=== PATIENT | female | born 1945 | race Hispanic/Latino ===

== ENCOUNTER → 2017-11-24 | Outpatient (CLI) | payer OTHER ==
[~2017-11-24] MED LIST: AMLO10TA4 PO; ASPI-1181 PO; CHOL100018 PO; CILO50TA PO; CLON0.1T PO; CLOP75TA32 PO; FENT-77 TD; FERR240T6 PO; HYDROCODONE PO; INSU100V12 SQ; LINA1TAB PO; METO50TA18 PO; OMEP40CA37 PO; ROSU5TAB PO; SERT50TA12 PO; SOLI5 PO
== END | disposition home or self-care (01) ==
LOC: SHCH 14:44
PROVIDERS: ATTEND Internal Medicine Cardiovascular Disease
DX: I65.23 Occlusion and stenosis of bilateral carotid arteries (principal); I70.8 Atherosclerosis of other arteries; R09.89 Other specified symptoms and signs involving the circulatory and respiratory systems
CPT/HCPCS: 93880

== ENCOUNTER → 2018-07-27 | Outpatient (CLI) | payer OTHER ==
[2018-07-27] MEDS: REGADENOSON 0.4 MG/5 ML PF SYG IVP SCH ×2 (10:35→13:16)
== END | disposition home or self-care (01) ==
LOC: SHCH 08:13
PROVIDERS: ATTEND Internal Medicine Cardiovascular Disease
DX: I25.10 Atherosclerotic heart disease of native coronary artery without angina pectoris (principal); I10 Essential (primary) hypertension
CPT/HCPCS: 78452; 93017; 96374; A9500 ×2; J2785

== ENCOUNTER 2018-07-28 06:03 | Emergency (ER) | payer OTHER ==
[2018-07-28 06:36] LABS: BASOPHILS % (AUTO) 0.7 % (0.0-5.0); LYMPHOCYTES % (AUTO) 26.5 % (21.0-51.0); MEAN CORPUSCULAR HEMOGLOBIN 28.9 pg (27.0-33.0); MEAN CORPUSCULAR VOLUME 87.7 fL (79-99); MONOCYTES % (AUTO) 13.9 % (3.0-13.0); NEUTROPHILS % (AUTO) 55.9 % (40.0-77.0); PLATELET COUNT (AUTO) 213 K/uL (130-400); RED BLOOD CELL COUNT(AUTO) 3.76 MIL/uL (4.00-5.50); RED CELL DISTRIBUTION WIDTH 14.7 % (11.0-15.5); WHITE BLOOD COUNT (AUTO) 5.2 K/uL (4.8-10.8)
[2018-07-28] MEDS ORDERED: HYDROCODONE/ACETAMINOPHEN 7.5/325 MG 15 ML UDCUP ONE (06:38)
[2018-07-28 06:43] LABS: CREATININE 0.8 mg/dL (0.5-1.5); POTASSIUM 3.3 mmol/L (3.5-5.1)
[2018-07-28 06:47] LABS: ALBUMIN 3.8 g/dL (3.5-5.0); BILIRUBIN,TOTAL 0.4 mg/dL (0.2-1.0); CRP QUANTITATIVE 23.1 mg/L (0.00-9.0); TOTAL PROTEIN, SERUM 7.5 g/dL (6.0-8.3)
[2018-07-28] MEDS ORDERED: CEFTRIAXONE SODIUM 1 GM ONE (08:03)
[2018-07-28] MEDS ORDERED: SODIUM CHLORIDE 0.9% 50 ML IV ONE (08:03)
== END 2018-07-28 08:59 | disposition home or self-care (01) ==
LOC: EDH 06:03
DX: M25.432 Effusion, left wrist (principal); M25.532 Pain in left wrist; M25.522 Pain in left elbow; M79.632 Pain in left forearm; I10 Essential (primary) hypertension; E11.9 Type 2 diabetes mellitus without complications; M81.0 Age-related osteoporosis without current pathological fracture; Z98.890 Other specified postprocedural states
CPT/HCPCS: 29125; 36415; 73070; 73090; 73100; 73110; 80053; 85025; 86140; 96374; 99285; J0696

== ENCOUNTER → 2018-08-11 | Outpatient (CLI) | payer OTHER | END | disposition home or self-care (01) | LOC: SHCH 07-22 13:19 | PROVIDERS: ATTEND Internal Medicine Cardiovascular Disease | DX: I25.10 Atherosclerotic heart disease of native coronary artery without angina pectoris (principal); I10 Essential (primary) hypertension | CPT/HCPCS: 93306 ==

== ENCOUNTER 2018-11-24 07:47 | Day surgery (SDC) | payer OTHER ==
[2018-11-20 09:39] VITALS: BP 153/83
[2018-11-20 10:09] LABS: BASOPHILS % (AUTO) 0.3 % (0.0-5.0); EOSINOPHILS % (AUTO) 1.9 % (0.0-8.0); HEMATOCRIT 35.7 % (36-48); LYMPHOCYTES % (AUTO) 28.7 % (21.0-51.0); MEAN CORPUSCULAR HEMOGLOBIN 28.8 pg (27.0-33.0); MEAN CORPUSCULAR HGB CONC 32.5 g/dL (32.0-36.0); MEAN CORPUSCULAR VOLUME 88.5 fL (79-99); MONOCYTES % (AUTO) 10.1 % (3.0-13.0); PLATELET COUNT (AUTO) 213 K/uL (130-400); RED BLOOD CELL COUNT(AUTO) 4.04 MIL/uL (4.00-5.50); RED CELL DISTRIBUTION WIDTH 14.8 % (11.0-15.5); WHITE BLOOD COUNT (AUTO) 4.4 K/uL (4.8-10.8)
[2018-11-20 10:17] LABS: CREATININE 0.9 mg/dL (0.5-1.5); POTASSIUM 4.2 mmol/L (3.5-5.1)
[2018-11-20 10:20] LABS: INR 0.97 (0.85-1.15); PARTIAL THROMBOPLASTIN TIME 28.5 SEC (26.3-35.5); PROTHROMBIN TIME 10.2 SEC (9.6-11.6)
[2018-11-20 10:26] LABS: APPEARANCE,URINE SL CLOUDY (CLEAR); BILIRUBIN,URINE SMALL (NEGATIVE); COLOR,URINE YELLOW (YELLOW); GLUCOSE, URINE (UA) NEGATIVE (NEGATIVE); KETONES,URINE 15 mg/dL (NEGATIVE); LEUKOCYTE ESTERASE ,URINE SMALL (NEGATIVE); NITRATE,URINE NEGATIVE (NEGATIVE); OCCULT BLOOD,URINE MODERATE (NEGATIVE); PH,URINE 5.5 (5.0-8.0); PROTEIN,URINE 30 (NEGATIVE)
[2018-11-20 10:57] LABS: WBC,URINE 0-1 /HPF (0-1)
[2018-11-20 11:00] LABS: BACTERIA,URINE Few /HPF (None Seen)
[2018-11-24] VITALS (11 sets, daily range): BP systolic 116–199; BP diastolic 72–124
[~2018-11-24] VITALS: Ht 149.9 cm; Wt 67.4 kg
[~2018-11-24 07:47] MED LIST changes: +BUSP10TA3 PO; -CHOL100018 PO; +CHOL500050 PO; +CILO100T PO; -CILO50TA PO; -CLON0.1T PO; +DEXL60CA3 PO; -FERR240T6 PO; +FOLI1TAB15 PO; +HYDR-4064 PO; -HYDROCODONE PO; +INSU100I21 SQ; -INSU100V12 SQ; +IRON1CAP3 PO; -LINA1TAB PO; +LINA5TAB PO; +METF-444 PO; +METO-391 PO; -METO50TA18 PO; -OMEP40CA37 PO; +SODIUM CHLORIDE 0.9% 500ML 500 ML IV SCH
[2018-11-24] MEDS ORDERED: SODIUM BICARB 50MEQ 50ML VIAL ONE (10:16)
[2018-11-24] MEDS ORDERED: NITROGLYCERIN 5 MG/ML 10 ML VIAL IV ONE (10:16)
[2018-11-24] MEDS ORDERED: IOHEXOL 350 MG/ML 100ML INFUS..BTL IV ONE (10:17)
[2018-11-24] MEDS ORDERED: LIDOCAINE HCL 2% 20ML ONE (10:17)
[2018-11-24] MEDS ORDERED: IOHEXOL-350 50ML VIAL IV ONE (10:17)
[2018-11-24] MEDS ORDERED: MEPERIDINE-PF 25 MG/ML SYG ONE ×2 (10:44→11:06)
[2018-11-24] MEDS ORDERED: MIDAZOLAM HCL 1 MG/ML 2ML VIAL ONE ×2 (10:45→11:06)
[2018-11-24] MEDS ORDERED: HEPARIN SODIUM 1000UNIT/ML 10ML VIAL ONE (11:16)
[2018-11-24] MEDS ORDERED: IOHEXOL-350 75 ML VIAL IV ONE (11:16)
[2018-11-24] MEDS ORDERED: ADENOSINE 90MG/30ML VIAL IV ONE (11:24)
[2018-11-24] MEDS ORDERED: ONDANSETRON HCL 4 MG/2 ML VIAL IVP PRN (11:45)
[2018-11-24] MEDS ORDERED: SODIUM CHLORIDE 0.9% 1000ML 1,000 ML IV SCH (11:45)
[2018-11-24] MEDS ORDERED: ACETAMINOPHEN-CODEINE 300/30MG TAB PO PRN ×2 (11:45)
[2018-11-24] MEDS ORDERED: ROSU10TA27 PO (15:23)
--- NOTE | 2018-11-24 16:17 | NUR ---
GAVE REPORT TO IDA YATES RN, NO CONCERNS VOICED
--- NOTE | 2018-11-24 16:30 | NUR ---
PATIENT RESUME CARE FOR PATIENT, REPORT WAS GIVEN TO ME BY GATO GUZMAN RN. PT AWAKE AND ALERT IN BED, PATIENT CONTINUES TO BE BEDREST, RIGHT GROIN DRESSING DRY AND INTACT, PEDAL PULSE PALPABLE. DAUGHTER AT BEDSIDE.
--- NOTE | 2018-11-24 17:11 | NUR ---
DC DC INSTRUCTIONS GIVEN TO PT/PTS DAUGHTER WITH RX, INSTRUCTED TO F/U WITH DR. BOWMAN, PT LYING IN BED,NO DISTRESS NOTED, DENIED ANY PAIN OR DISCOMFORTS. PATIENT REMAINS BEDREST, WILL BE DISCHARGE HOME ONCE BEDREST IS UP.
--- NOTE | 2018-11-24 18:11 | NUR ---
FLUIDS IVF COMPLETED AT THIS TIME, PT ASSISTED OUT OF BED,BEDREST UP , RIGHT GROIN SITE WITH NO BLEEDING ,HEMATOMA, OR BRUSING, PT AWAKE AND ALERT,NO DISTRESS NOTED. PT GETTING DRESS TO GO HOME, DAUGHTER AT BEDSIDE. DC INSTRUCTIOSN REINFORCED AGAIN. PT /DAUGHTER VERBALIZED UNDERSTANDING, NO PIV NOTED.
--- NOTE | 2018-11-24 18:20 | NUR ---
DC PT DC HOME VIA WC,NO DISTRESS NOTED. ACCOMPANIED BY DAUGHTER
== END 2018-11-24 18:20 | disposition home or self-care (01) ==
LOC: DAH 07:47
PROVIDERS: ATTEND Internal Medicine Cardiovascular Disease
DX: I25.118 Atherosclerotic heart disease of native coronary artery with other forms of angina pectoris (principal); Z79.899 Other long term (current) drug therapy; Z79.01 Long term (current) use of anticoagulants; D64.89 Other specified anemias; I10 Essential (primary) hypertension; E78.5 Hyperlipidemia, unspecified; E11.9 Type 2 diabetes mellitus without complications; E66.9 Obesity, unspecified; G89.4 Chronic pain syndrome; Z98.890 Other specified postprocedural states; Z83.3 Family history of diabetes mellitus; Z82.49 Family history of ischemic heart disease and other diseases of the circulatory system; Z80.9 Family history of malignant neoplasm, unspecified
CPT/HCPCS: 36415; 71045; 80048; 81001; 82948 ×3; 85025; 85610; 85730; 93005; 93458; 93571; A4606; C1760; C1769; C1887; C1894; J0153; J1644 ×2; J2175 ×2; J2250 ×2; J3490 ×3; Q9965; Q9967 ×2; 99156; 99157

== ENCOUNTER 2019-02-27 16:08 | Emergency (ER) | payer OTHER ==
[~2019-02-27 16:08] MED LIST changes: +ROSU10TA27 PO; -ROSU5TAB PO; -SODIUM CHLORIDE 0.9% 500ML 500 ML IV SCH
[2019-02-27] MEDS ORDERED: ACETAMINOPHEN EXTRA STRENGTH 500 MG TABLET ONE (16:34)
== END 2019-02-27 17:55 | disposition home or self-care (01) ==
LOC: EDH 16:08
DX: S76.012A Strain of muscle, fascia and tendon of left hip, initial encounter (principal); S80.02XA Contusion of left knee, initial encounter; S80.01XA Contusion of right knee, initial encounter; S09.8XXA Other specified injuries of head, initial encounter; M48.02 Spinal stenosis, cervical region; E11.9 Type 2 diabetes mellitus without complications; I10 Essential (primary) hypertension; M81.0 Age-related osteoporosis without current pathological fracture; W01.0XXA Fall on same level from slipping, tripping and stumbling without subsequent striking against object, initial encounter; Y93.01 Activity, walking, marching and hiking; Y92.090 Kitchen in other non-institutional residence as the place of occurrence of the external cause; Y99.8 Other external cause status
CPT/HCPCS: 70450; 72125; 73521; 73560

== ENCOUNTER 2019-05-11 12:57 | Emergency (ER) | payer OTHER ==
[~2019-05-11 12:57] MED LIST changes: -ROSU10TA27 PO; +ROSU10TA28 PO
[2019-05-11] MEDS ORDERED: ACETAMINOPHEN 325 MG TAB ONE (13:11)
== END 2019-05-11 16:27 | disposition home or self-care (01) ==
LOC: EDH 12:57
DX: S13.4XXA Sprain of ligaments of cervical spine, initial encounter (principal); S53.492A Other sprain of left elbow, initial encounter; S63.592A Other specified sprain of left wrist, initial encounter; S09.8XXA Other specified injuries of head, initial encounter; E11.9 Type 2 diabetes mellitus without complications; I10 Essential (primary) hypertension; M81.0 Age-related osteoporosis without current pathological fracture; W18.39XA Other fall on same level, initial encounter; Y93.01 Activity, walking, marching and hiking; Y92.89 Other specified places as the place of occurrence of the external cause; Y99.8 Other external cause status
CPT/HCPCS: 70450; 70486; 71045; 72125; 73080; 73110; 93005

== ENCOUNTER 2019-08-07 13:10 | Emergency (ER) | payer OTHER ==
[2019-08-07 13:54] LABS: BASOPHILS % (AUTO) 0.7 % (0.0-5.0); EOSINOPHILS % (AUTO) 2.7 % (0.0-8.0); HEMATOCRIT 38.1 % (36-48); LYMPHOCYTES % (AUTO) 27.8 % (21.0-51.0); MEAN CORPUSCULAR HEMOGLOBIN 28.9 pg (27.0-33.0); MEAN CORPUSCULAR HGB CONC 33.1 g/dL (32.0-36.0); MEAN CORPUSCULAR VOLUME 87.2 fL (79-99); MONOCYTES % (AUTO) 11.9 % (3.0-13.0); NEUTROPHILS % (AUTO) 56.9 % (40.0-77.0); PLATELET COUNT (AUTO) 136 K/uL (130-400); RED BLOOD CELL COUNT(AUTO) 4.37 MIL/uL (4.00-5.50); RED CELL DISTRIBUTION WIDTH 16.1 % (11.0-15.5); WHITE BLOOD COUNT (AUTO) 4.1 K/uL (4.8-10.8)
[2019-08-07 14:01] LABS: CREATININE 0.9 mg/dL (0.5-1.5); POTASSIUM 3.2 mmol/L (3.5-5.1)
[2019-08-07] MEDS ORDERED: ASPIRIN 325 MG TABLET ONE (14:03)
[2019-08-07 14:06] LABS: ALBUMIN 4.2 g/dL (3.5-5.0); BILIRUBIN,TOTAL 0.5 mg/dL (0.2-1.0); TOTAL PROTEIN, SERUM 7.9 g/dL (6.0-8.3)
[2019-08-07 14:15] LABS: CREATINE KINASE, TOTAL 48 U/L (21-232); MYOGLOBIN 48 ng/mL (10-92); TROPONIN I < 0.04 ng/mL (0.00-0.06)
[2019-08-07 14:17] LABS: AMYLASE 51 U/L (25-115); LIPASE 113 U/L (114-286)
[2019-08-07 14:38] LABS: BILIRUBIN,URINE Small (NEGATIVE); COLOR,URINE Dark Yellow (YELLOW); GLUCOSE, URINE (UA) Negative (NEGATIVE); KETONES,URINE 15 mg/dL (NEGATIVE); LEUKOCYTE ESTERASE ,URINE Small (NEGATIVE); NITRATE,URINE Negative (NEGATIVE); OCCULT BLOOD,URINE Negative (NEGATIVE); PH,URINE 5.5 (5.0-8.0); PROTEIN,URINE 300 mg/dL (NEGATIVE)
[2019-08-07 15:16] LABS: APPEARANCE,URINE HAZY (CLEAR); BACTERIA,URINE Few /HPF (None Seen); RBC,URINE None Seen /HPF (0-1)
[2019-08-07 15:55] LABS: INR 1.03 (0.85-1.15); PARTIAL THROMBOPLASTIN TIME 24.4 SEC (26.3-35.5); PROTHROMBIN TIME 10.6 SEC (9.6-11.6)
== END 2019-08-07 16:00 | disposition home or self-care (01) ==
LOC: EDH 13:10
DX: R07.89 Other chest pain (principal); E11.9 Type 2 diabetes mellitus without complications; I10 Essential (primary) hypertension; M81.0 Age-related osteoporosis without current pathological fracture; Z90.710 Acquired absence of both cervix and uterus; Z96.612 Presence of left artificial shoulder joint; Z96.611 Presence of right artificial shoulder joint
CPT/HCPCS: 36415; 71045; 80053; 81001; 82150; 82550; 83690; 83874; 84484; 85025; 85610; 85730; 93005

== ENCOUNTER → 2019-09-07 | Outpatient (CLI) | payer OTHER | END | disposition home or self-care (01) | LOC: SHCH 10:23 | PROVIDERS: ATTEND Internal Medicine Cardiovascular Disease | DX: I65.23 Occlusion and stenosis of bilateral carotid arteries (principal) | CPT/HCPCS: 93880 ==

== ENCOUNTER 2020-03-18 13:33 | Emergency (ER) | payer OTHER ==
[2020-03-18] MEDS ORDERED: ACETAMINOPHEN 325 MG TAB ONE (14:24)
[2020-03-18] MEDS ORDERED: TETANUS/DIPHTHERIA TOXOID [ADULT] 0.5 ML VIAL IM ONE (14:24)
[2020-03-18] MEDS ORDERED: L.E.T. GEL 4%/0.5%/0.18% 3ML 3 ML/SYR SYG TP ONE (15:32)
== END 2020-03-18 17:01 | disposition home or self-care (01) ==
LOC: EDH 13:33
DX: S01.01XA Laceration without foreign body of scalp, initial encounter (principal); S53.491A Other sprain of right elbow, initial encounter; S83.8X1A Sprain of other specified parts of right knee, initial encounter; M54.2 Cervicalgia; E11.9 Type 2 diabetes mellitus without complications; I10 Essential (primary) hypertension; Z79.899 Other long term (current) drug therapy; W18.39XA Other fall on same level, initial encounter; Y93.01 Activity, walking, marching and hiking; Y92.89 Other specified places as the place of occurrence of the external cause; Y99.8 Other external cause status

== ENCOUNTER → 2020-06-29 | Outpatient (CLI) | payer OTHER ==
[~2020-06-29] MED LIST changes: -ASPI-1181 PO; +ASPI-1443 PO
== END | disposition home or self-care (01) ==
LOC: SHCH 10:00
PROVIDERS: ATTEND Internal Medicine Cardiovascular Disease
DX: I08.0 Rheumatic disorders of both mitral and aortic valves (principal)
CPT/HCPCS: 93306; 93356

== ENCOUNTER → 2021-03-14 | Outpatient (CLI) | payer OTHER ==
[~2021-03-14] MED LIST changes: +SERT-439 PO; -SERT50TA12 PO
== END | disposition home or self-care (01) ==
LOC: SHCH 09:22
PROVIDERS: ATTEND Internal Medicine Cardiovascular Disease
DX: I73.9 Peripheral vascular disease, unspecified (principal); Z95.5 Presence of coronary angioplasty implant and graft
CPT/HCPCS: 93925

== ENCOUNTER → 2021-05-21 | Outpatient (CLI) | payer OTHER ==
[~2021-05-21] MED LIST changes: +FURO40TA7 PO; +MAGN400T7 PO; +REGADENOSON 0.4 MG/5 ML PF SYG IVP SCH; +SPIR25TA PO
== END | disposition home or self-care (01) ==
LOC: SHCH 08:11
PROVIDERS: ATTEND Internal Medicine Cardiovascular Disease
DX: I10 Essential (primary) hypertension (principal); R06.09 Other forms of dyspnea; R07.89 Other chest pain; R11.0 Nausea; R10.9 Unspecified abdominal pain
CPT/HCPCS: 78452; 93017; 96374; A9500 ×2; J2785

== ENCOUNTER → 2021-12-11 | Outpatient (CLI) | payer OTHER ==
[~2021-12-11] MED LIST changes: -REGADENOSON 0.4 MG/5 ML PF SYG IVP SCH
== END | disposition home or self-care (01) ==
LOC: RAH 09:05
PROVIDERS: ATTEND Family Medicine
DX: K55.1 Chronic vascular disorders of intestine (principal); I70.0 Atherosclerosis of aorta; Z90.49 Acquired absence of other specified parts of digestive tract
CPT/HCPCS: 74150

== ENCOUNTER 2022-01-23 06:25 | Observation (INO) | payer OTHER ==
[2022-01-21 10:37] LABS: BASOPHILS % (AUTO) 0.1 % (0.0-5.0); HEMATOCRIT 37.1 % (36-48); LYMPHOCYTES % (AUTO) 17.8 % (21.0-51.0); MEAN CORPUSCULAR HEMOGLOBIN 27.8 pg (27.0-33.0); MEAN CORPUSCULAR HGB CONC 31.3 g/dL (32.0-36.0); MONOCYTES % (AUTO) 7.5 % (3.0-13.0); NEUTROPHILS % (AUTO) 72.7 % (40.0-77.0); PLATELET COUNT (AUTO) 201 K/uL (130-400); RED BLOOD CELL COUNT(AUTO) 4.17 MIL/uL (4.00-5.50); RED CELL DISTRIBUTION WIDTH 13.8 % (11.0-15.5); WHITE BLOOD COUNT (AUTO) 6.7 K/uL (4.8-10.8)
[2022-01-21 10:51] LABS: INR 1.06 (0.85-1.15)
[2022-01-21 10:54] LABS: CREATININE 1.4 mg/dL (0.5-1.5); POTASSIUM 4.1 mmol/L (3.5-5.1)
[2022-01-21 11:50] LABS: APPEARANCE,URINE CLOUDY (CLEAR); BILIRUBIN,URINE SMALL (NEGATIVE); COLOR,URINE YELLOW (YELLOW); GLUCOSE, URINE (UA) NEGATIVE (NEGATIVE); KETONES,URINE 5 mg/dL (NEGATIVE); LEUKOCYTE ESTERASE ,URINE SMALL (NEGATIVE); NITRATE,URINE NEGATIVE (NEGATIVE); OCCULT BLOOD,URINE LARGE (NEGATIVE); PROTEIN,URINE 30 mg/dL (NEGATIVE); UROBILINOGEN,URINE 0.2 mg/dL (0.2-1.0)
[2022-01-21 12:05] LABS: BACTERIA,URINE Few /HPF (None Seen); RBC,URINE 0-1 /HPF (0-1); SQUAMOUS EPITHELIAL CELL,UR Few /HPF (0-2)
[2022-01-22 09:11] VITALS: BP 130/90
[~2022-01-23] VITALS: Ht 162.6 cm; Wt 74.8 kg
[2022-01-23] VITALS (25 sets, daily range): BP systolic 131–185; BP diastolic 52–94
[~2022-01-23 06:25] MED LIST changes: -CHOL500050 PO; -CILO100T PO; +CILO50TA PO; +CLIN-116 PO; +DOCU100T PO; -FENT-77 TD; +HYDR-4060 PO; -HYDR-4064 PO; -INSU100I21 SQ; +INSU100V12 SQ; -IRON1CAP3 PO; +LOSA25TA41 PO; +MAGN400T51 PO; -MAGN400T7 PO; -METF-444 PO; +METF500S7 PO; -SERT-439 PO; +SERT-440 PO; -SPIR25TA PO
[2022-01-23] MEDS ORDERED: 0.9%NACL 1000ML 1,000 ML IV ONE (07:33)
[2022-01-23] MEDS: CEFAZOLIN SODIUM 1 GM VIAL IVP SCH ×3 (07:45→18:56)
[2022-01-23] MEDS: LEVOFLOXACIN 500 MG/D5W 100 ML 100 ML IV SCH ×2 (09:00→20:06)
[2022-01-23] MEDS ORDERED: PROPOFOL 10 MG/ML 20ML VIAL IV ONE (10:15)
[2022-01-23] MEDS ORDERED: LIDOCAINE PF 100MG/5ML (2%) SYRINGE 5ML ONE (10:15)
[2022-01-23] MEDS ORDERED: ROCURONIUM 10MG/1ML SYR 10 MG/ML ML ONE (10:15)
[2022-01-23] MEDS ORDERED: ROPIVACAINE 0.5% 5MG/ML 30ML IJ ONE (10:18)
[2022-01-23] MEDS ORDERED: EPHEDRINE SULFATE 50 MG/ML AMPULE ONE (11:06)
[2022-01-23] MEDS: CEFAZOLIN SODIUM 1 GM VIAL ONE ×2 (11:42→11:43)
[2022-01-23] MEDS ORDERED: PHENYLEPHRINE HCL 10 MG/ML 1ML VIAL IV ONE (12:22)
[2022-01-23] MEDS ORDERED: ONDANSETRON 4MG INJ ONE (13:02)
[2022-01-23] MEDS ORDERED: GLYCOPYRROLATE 1 MG/5 ML SYRINGE ONE (13:02)
[2022-01-23] MEDS ORDERED: NEOSTIGMINE 5MG/5ML SYR IV ONE (13:02)
[2022-01-23] MEDS ORDERED: TEMAZEPAM 15 MG CAPSULE PO PRN (13:30)
[2022-01-23] MEDS ORDERED: DiphenhydrAMINE HCL 50 MG/ML VIAL IVP PRN (13:30)
[2022-01-23] MEDS ORDERED: TRAMADOL HCL 50 MG TABLET PO PRN (13:30)
[2022-01-23] MEDS ORDERED: KETOROLAC 15MG/ML VIAL (15MG/ML) IV PRN (13:30)
[2022-01-23] MEDS ORDERED: POTASSIUM CHLORIDE 10% ELIXIR 20 MEQ/15 ML UDCUP PO PRN (13:30)
[2022-01-23] MEDS: ACETAMINOPHEN 500 MG TABLET PO SCH ×2 (13:30→20:52)
[2022-01-23] MEDS ORDERED: ONDANSETRON 4MG INJ IVP PRN (13:30)
[2022-01-23] MEDS ORDERED: POTASSIUM CHLORIDE 20MEQ/100ML 100 ML IV PRN (13:30)
[2022-01-23] MEDS ORDERED: LIDOCAINE HCL-MPF 1% 2ML VIAL IV PRN (13:30)
[2022-01-23] MEDS: 0.9%NACL 1000ML 1,000 ML IV SCH ×2 (13:30→23:30)
[2022-01-23] MEDS ORDERED: FE FUMARATE/FA/MV, MIN COMB#15 1 TAB PO PRN (13:30)
[2022-01-23] MEDS ORDERED: MEPERIDINE-PF 25 MG/ML SYG ONE (14:05)
[2022-01-23] MEDS ORDERED: LABETALOL 20MG SYG IV ONE (14:38)
[2022-01-23 16:18] LABS: APPEARANCE BODY FLUID CLOUDY (CLEAR); BODY FLUID WBC 53 /cu. mm.; COLOR,BODY FLUID ORANGE (LT YELLOW); SPECIMENTYPE,BODY FLUID SYNOVIAL; TOTAL VOLUME,BODY FLUID 9 mL
[2022-01-23 16:19] LABS: BODY FLUID RBC 7150 /cu. mm.
[2022-01-23] MEDS: INSULIN HUMULIN R 100 UNIT/ML 3ML SQ SCH ×2 (16:30→20:53)
[2022-01-23 17:03] LABS: BF LYMPHOCYTE 37 %; BF MONOCYTE 2 %
[2022-01-23] MEDS: CELECOXIB 200 MG CAP PO SCH (20:52)
[2022-01-23] MEDS: FAMOTIDINE 20MG TAB PO SCH (20:52)
[2022-01-23] MEDS: ASPIRIN 81 MG EC TAB PO SCH (20:52)
[2022-01-23] MEDS: OXYCODONE HCL 5 MG TAB PO PRN (21:02)
[2022-01-24 00:30] VITALS: BP 110/48
[2022-01-24] MEDS: CEFAZOLIN SODIUM 1 GM VIAL IVP SCH (01:21)
[2022-01-24] MEDS: OXYCODONE HCL 5 MG TAB PO PRN ×5 (01:28→21:33)
[2022-01-24 04:06] LABS: HEMATOCRIT 25.3 % (36-48); MEAN CORPUSCULAR HEMOGLOBIN 28.6 pg (27.0-33.0); MEAN CORPUSCULAR HGB CONC 32.8 g/dL (32.0-36.0); MEAN CORPUSCULAR VOLUME 87.2 fL (79-99); RED BLOOD CELL COUNT(AUTO) 2.9 MIL/uL (4.00-5.50); WHITE BLOOD COUNT (AUTO) 4.2 K/uL (4.8-10.8)
[2022-01-24 04:18] LABS: CREATININE 0.9 mg/dL (0.5-1.5); POTASSIUM 3.5 mmol/L (3.5-5.1)
[2022-01-24 04:37] VITALS: BP 117/53
[2022-01-24] MEDS: ACETAMINOPHEN 500 MG TABLET PO SCH ×3 (04:48→21:29)
[2022-01-24] MEDS: INSULIN HUMULIN R 100 UNIT/ML 3ML SQ SCH ×4 (06:58→21:00)
[2022-01-24 07:00] VITALS: BP 106/51
[2022-01-24] MEDS: CELECOXIB 200 MG CAP PO SCH ×2 (08:29→21:26)
[2022-01-24] MEDS: ASPIRIN 81 MG EC TAB PO SCH ×2 (08:29→21:26)
[2022-01-24] MEDS: POLYETHYLENE GLYCOL 3350 17 GM POWD.PACK PO SCH (08:29)
[2022-01-24] MEDS: FAMOTIDINE 20MG TAB PO SCH ×2 (08:29→21:26)
[2022-01-24] MEDS: 0.9%NACL 1000ML 1,000 ML IV SCH (08:29)
[2022-01-24] MEDS: LEVOFLOXACIN 500 MG TABLET PO SCH (08:30)
[2022-01-24] MEDS ORDERED: DOCUSATE SODIUM 100 MG CAP PO PRN (10:00)
[2022-01-24 11:05] VITALS: BP 135/54
[2022-01-24] MEDS: CALCIUM CARB 500MG PO PRN ×2 (12:34→21:27)
[2022-01-24] MEDS: CILOSTAZOL 100 MG TAB PO SCH ×2 (12:34→21:26)
[2022-01-24] MEDS: KCL 20 MEQ ERTAB PO PRN ×2 (12:35→16:02)
[2022-01-24 15:00] VITALS: BP 128/59
[2022-01-24] MEDS: BUSPIRONE HCL 5 MG TABLET PO SCH ×2 (16:03→21:27)
[2022-01-24] MEDS: LEVOFLOXACIN 500 MG/D5W 100 ML 100 ML IV SCH (19:46)
[2022-01-24 19:58] VITALS: BP 124/61
[2022-01-24] MEDS ORDERED: SOLIFENACIN SUCCINATE 5 MG PO SCH (21:00)
[2022-01-24] MEDS ORDERED: ATORVASTATIN 20 MG TABLET PO SCH (21:00)
[2022-01-24] MEDS ORDERED: INSULIN GLARGINE 100 UNITS/ML 10 ML VIAL SQ SCH (21:00)
[2022-01-25 00:17] VITALS: BP 164/74
[2022-01-25 04:00] VITALS: BP 134/73
[2022-01-25] MEDS: ACETAMINOPHEN 500 MG TABLET PO SCH ×2 (06:04→14:37)
[2022-01-25] MEDS: OXYCODONE HCL 5 MG TAB PO PRN ×4 (06:05→19:24)
[2022-01-25] MEDS: INSULIN HUMULIN R 100 UNIT/ML 3ML SQ SCH ×3 (06:05→16:28)
[2022-01-25 08:00] VITALS: BP 165/86
[2022-01-25] MEDS ORDERED: LOSARTAN 25 MG TABLET PO SCH (09:00)
[2022-01-25] MEDS ORDERED: ***HM***(Dexlansoprazole (Dexilant) 60 MG) PO SCH (09:00)
[2022-01-25] MEDS ORDERED: CLOPIDOGREL 75MG TAB PO SCH (09:00)
[2022-01-25] MEDS ORDERED: METFORMIN HCL 500 MG TAB.SR.24H PO SCH (09:00)
[2022-01-25] MEDS ORDERED: AMLODIPINE 5 MG TAB PO SCH (09:00)
[2022-01-25] MEDS ORDERED: ASPIRIN 81 MG EC TAB PO SCH (09:00)
[2022-01-25] MEDS ORDERED: FOLIC ACID 1 MG TABLET PO SCH (09:00)
[2022-01-25] MEDS ORDERED: METOPROLOL SUCCINATE 50 MG TAB.SR.24H PO SCH (09:00)
[2022-01-25] MEDS ORDERED: SERTRALINE HCL 50 MG TABLET PO SCH (09:00)
[2022-01-25] MEDS ORDERED: FUROSEMIDE 40 MG TABLET PO SCH (09:00)
[2022-01-25] MEDS ORDERED: LINAGLIPTIN 5 MG TABLET PO SCH (09:00)
[2022-01-25] MEDS ORDERED: MAGNESIUM OXIDE 400 MG TABLET PO SCH (09:00)
[2022-01-25] MEDS: POLYETHYLENE GLYCOL 3350 17 GM POWD.PACK PO SCH (09:21)
[2022-01-25] MEDS: LEVOFLOXACIN 500 MG TABLET PO SCH (09:22)
[2022-01-25] MEDS: BUSPIRONE HCL 5 MG TABLET PO SCH ×2 (09:22→14:37)
[2022-01-25] MEDS: CILOSTAZOL 100 MG TAB PO SCH (09:22)
[2022-01-25] MEDS: CELECOXIB 200 MG CAP PO SCH (09:22)
[2022-01-25] MEDS: FAMOTIDINE 20MG TAB PO SCH (09:22)
[2022-01-25] MEDS: ASPIRIN 81 MG EC TAB PO SCH (09:26)
[2022-01-25 12:00] VITALS: BP 150/77
[2022-01-25 16:00] VITALS: BP 134/61
[2022-01-25] MEDS ORDERED: HYDR-4060 PO (17:22)
[2022-01-25] MEDS ORDERED: LEVO500T90 PO (17:22)
[2022-01-26] MEDS ORDERED: BISACODYL 10 MG SUPP.RECT RC PRN (13:30)
== END 2022-01-25 20:07 | disposition home or self-care (01) ==
LOC: DAH 06:25 → DAHIP 06:26 → DAH 06:26 → 4AH 15:49
PROVIDERS: ADMIT Orthopaedic Surgery; ATTEND Orthopaedic Surgery
DX: T84.098A Other mechanical complication of other internal joint prosthesis, initial encounter (principal); Z20.822 Contact with and (suspected) exposure to COVID-19; M65.811 Other synovitis and tenosynovitis, right shoulder; D50.0 Iron deficiency anemia secondary to blood loss (chronic); N39.0 Urinary tract infection, site not specified; E11.9 Type 2 diabetes mellitus without complications; I25.10 Atherosclerotic heart disease of native coronary artery without angina pectoris; Z96.611 Presence of right artificial shoulder joint; Z79.899 Other long term (current) drug therapy
CPT/HCPCS: 23473; 36415 ×2; 64415; 73030; 76942; 80048 ×2; 81001; 82948 ×10; 85025; 85027; 85610; 87070; 87076; 87077; 87088; 87186; 87205; 87635; 87641; 88305; 89051; 96365; 96375 ×2; 97039 ×3; 97116; 97161; 97530 ×4; A4215; A4216; A4221; A4222; A4223 ×2; A4565; A4649 ×4; A4663; A4930 ×2; A5113; A5120; A6206; A6219; C1713; C1776 ×2; C9803; G0168; G0378 ×52; J0690 ×4; J1885; J1956; J2001; J2175; J2370; J2405; J2704; J2710; J2795; J3490 ×2; J7030 ×2

== ENCOUNTER 2022-09-06 17:26 | Inpatient (IN) | payer OTHER ==
[~2022-09-06] VITALS: Ht 154.9 cm; Wt 79.5 kg
[~2022-09-06 17:26] MED LIST changes: -CILO50TA PO; +CILO50TA2 PO; -CLIN-116 PO; +GABA-529 PO; -LINA5TAB PO; -METF500S7 PO
[2022-09-06] MEDS ORDERED: ONDANSETRON 4MG INJ IVP PRN (18:30)
[2022-09-06] MEDS ORDERED: HYDRALAZINE 20MG/ML VIAL IV PRN (18:30)
[2022-09-06 18:38] LABS: HEMATOCRIT 29.5 % (36-48); MEAN CORPUSCULAR HEMOGLOBIN 25.4 pg (27.0-33.0); MEAN CORPUSCULAR HGB CONC 30.5 g/dL (32.0-36.0); MEAN CORPUSCULAR VOLUME 83.1 fL (79-99); PLATELET COUNT (AUTO) 168 K/uL (130-400); RED BLOOD CELL COUNT(AUTO) 3.55 MIL/uL (4.00-5.50); RED CELL DISTRIBUTION WIDTH 15.9 % (11.0-15.5); WHITE BLOOD COUNT (AUTO) 4.7 K/uL (4.8-10.8)
[2022-09-06 19:05] LABS: CREATININE 1.4 mg/dL (0.5-1.5); MAGNESIUM 1.6 mg/dL (1.80-2.40); PHOSPHORUS 3.8 mg/dL (2.5-4.9); POTASSIUM 3.9 mmol/L (3.5-5.1)
[2022-09-06] MEDS: LACTATED RINGERS 1000ML 1,000 ML IV SCH (19:42)
[2022-09-06 20:00] VITALS: BP 119/56
[2022-09-06] MEDS: INSULIN HUMULIN R 100 UNIT/ML 3ML SQ SCH (21:00)
[2022-09-06] MEDS ORDERED: MAGNESIUM 2GM PREMIX 50ML 50 ML IV SCH (21:30)
[2022-09-06] MEDS: PHARMACY COMMUNICATION MISC SCH (21:46)
[2022-09-06] MEDS ORDERED: FERS325 PO (21:58)
[2022-09-06] MEDS ORDERED: LINA5TAB PO (21:58)
[2022-09-06] MEDS ORDERED: GABA-529 PO (21:58)
[2022-09-06] MEDS ORDERED: MAGN400T53 PO (21:58)
[2022-09-06] MEDS ORDERED: METF-444 PO (21:58)
[2022-09-06] MEDS ORDERED: INSU100V12 SQ (21:58)
[2022-09-06] MEDS ORDERED: TRAM50TA4 PO (21:58)
[2022-09-06 22:00] LABS: APPEARANCE,URINE CLOUDY (CLEAR); BILIRUBIN,URINE NEGATIVE (NEGATIVE); COLOR,URINE YELLOW (YELLOW); GLUCOSE, URINE (UA) NEGATIVE (NEGATIVE); KETONES,URINE NEGATIVE (NEGATIVE); LEUKOCYTE ESTERASE ,URINE 500 Leu/uL (NEGATIVE); NITRATE,URINE NEGATIVE (NEGATIVE); OCCULT BLOOD,URINE SMALL (NEGATIVE); PROTEIN,URINE NEGATIVE (NEGATIVE); UROBILINOGEN,URINE 0.2 mg/dL (0.2-1.0)
[2022-09-06 22:03] LABS: BACTERIA,URINE RARE /HPF (None Seen); MUCUS,URINE RARE LPF (None Seen); SQUAMOUS EPITHELIAL CELL,UR MOD /HPF (0-2)
[2022-09-06] MEDS ORDERED: MAGNESIUM 2GM PREMIX 50ML 50 ML IV PRN (22:30)
[2022-09-07] VITALS: BP 122/47
[2022-09-07] MEDS: MEROPENEM 1 GM VIAL IVP SCH ×3 (01:00→17:51)
[2022-09-07] MEDS: LACTATED RINGERS 1000ML 1,000 ML IV SCH ×3 (02:12→22:44)
[2022-09-07] MEDS: PHARMACY COMMUNICATION MISC SCH ×2 (03:30→09:30)
[2022-09-07 04:00] VITALS: BP 122/55
[2022-09-07] MEDS: INSULIN HUMULIN R 100 UNIT/ML 3ML SQ SCH ×4 (06:35→20:23)
[2022-09-07 08:00] VITALS: BP 142/61
[2022-09-07] MEDS: ASPIRIN 81 MG EC TAB PO SCH (08:58)
[2022-09-07] MEDS: BUSPIRONE HCL 5 MG TABLET PO SCH ×3 (08:58→20:11)
[2022-09-07] MEDS: CILOSTAZOL 100 MG TAB PO SCH ×2 (08:58→20:12)
[2022-09-07] MEDS: SERTRALINE HCL 50 MG TABLET PO SCH (08:58)
[2022-09-07] MEDS: FERROUS SULFATE 325 MG TABLET.DR PO SCH (08:58)
[2022-09-07] MEDS: MAGNESIUM OXIDE 400 MG TABLET PO SCH ×2 (08:58→20:11)
[2022-09-07] MEDS: FUROSEMIDE 40 MG TABLET PO SCH (08:58)
[2022-09-07] MEDS: CLOPIDOGREL 75MG TAB PO SCH (08:59)
[2022-09-07] MEDS: GABAPENTIN 100 MG CAPSULE PO SCH ×3 (08:59→20:11)
[2022-09-07] MEDS: ENOXAPARIN SODIUM 30 MG/0.3 ML SQ SCH (09:00)
[2022-09-07] MEDS: Rosuvastatin Calcium 10 MG PO SCH (09:00)
[2022-09-07] MEDS ORDERED: CEFTRIAXONE 1G VIAL IVP SCH (09:00)
[2022-09-07 16:00] VITALS: BP 153/73
[2022-09-07] MEDS ORDERED: IOHEXOL 350 MG/ML 100ML INFUS..BTL IV ONE (16:37)
[2022-09-07 19:41] VITALS: BP 146/82
[2022-09-07] MEDS ORDERED: GABAPENTIN 100 MG CAPSULE PO SCH (21:00)
[2022-09-07 23:20] VITALS: BP 136/64
[2022-09-08] MEDS: MEROPENEM 1 GM VIAL IVP SCH ×3 (00:21→17:42)
[2022-09-08 03:53] VITALS: BP 143/60
[2022-09-08 05:49] LABS: BASOPHILS % (AUTO) 0.3 % (0.0-5.0); EOSINOPHILS % (AUTO) 1.9 % (0.0-8.0); HEMATOCRIT 25.9 % (36-48); LYMPHOCYTES % (AUTO) 28.8 % (21.0-51.0); MEAN CORPUSCULAR HEMOGLOBIN 25.2 pg (27.0-33.0); MEAN CORPUSCULAR HGB CONC 30.5 g/dL (32.0-36.0); MEAN CORPUSCULAR VOLUME 82.7 fL (79-99); MONOCYTES % (AUTO) 14.3 % (3.0-13.0); NEUTROPHILS % (AUTO) 48.9 % (40.0-77.0); PLATELET COUNT (AUTO) 146 K/uL (130-400); RED BLOOD CELL COUNT(AUTO) 3.13 MIL/uL (4.00-5.50); RED CELL DISTRIBUTION WIDTH 16.1 % (11.0-15.5); WHITE BLOOD COUNT (AUTO) 3.6 K/uL (4.8-10.8)
[2022-09-08 05:58] LABS: CREATININE 1.1 mg/dL (0.5-1.5); POTASSIUM 3.8 mmol/L (3.5-5.1)
[2022-09-08] MEDS: LACTATED RINGERS 1000ML 1,000 ML IV SCH (06:07)
[2022-09-08] MEDS: INSULIN HUMULIN R 100 UNIT/ML 3ML SQ SCH ×3 (06:15→16:19)
[2022-09-08 07:45] VITALS: BP 134/70
[2022-09-08] MEDS: BUSPIRONE HCL 5 MG TABLET PO SCH ×2 (08:36→14:12)
[2022-09-08] MEDS: CLOPIDOGREL 75MG TAB PO SCH (08:36)
[2022-09-08] MEDS: SERTRALINE HCL 50 MG TABLET PO SCH (08:37)
[2022-09-08] MEDS: CILOSTAZOL 100 MG TAB PO SCH (08:37)
[2022-09-08] MEDS: FERROUS SULFATE 325 MG TABLET.DR PO SCH (08:38)
[2022-09-08] MEDS: FUROSEMIDE 40 MG TABLET PO SCH (08:38)
[2022-09-08] MEDS: GABAPENTIN 100 MG CAPSULE PO SCH ×2 (08:38→14:13)
[2022-09-08] MEDS: MAGNESIUM OXIDE 400 MG TABLET PO SCH (08:38)
[2022-09-08] MEDS: ASPIRIN 81 MG EC TAB PO SCH (08:38)
[2022-09-08] MEDS: Rosuvastatin Calcium 10 MG PO SCH (09:00)
[2022-09-08] MEDS: ENOXAPARIN SODIUM 30 MG/0.3 ML SQ SCH (09:14)
[2022-09-08] MEDS: PHARMACY COMMUNICATION MISC SCH ×2 (09:30→15:30)
[2022-09-08 10:56] VITALS: BP 141/76
[2022-09-08 16:08] VITALS: BP 129/71
[2022-09-08] MEDS ORDERED: AMOX-426 PO (16:37)
== END 2022-09-08 18:30 | disposition home or self-care (01) | DRG 690 ==
LOC: EDH 17:26 → OBSVTOIN 18:14 → 4AH 18:14 → 4DH 09-07 17:55
PROVIDERS: ADMIT Internal Medicine Critical Care Medicine; ATTEND Internal Medicine Critical Care Medicine
DX: N30.00 Acute cystitis without hematuria (principal); I50.30 Unspecified diastolic (congestive) heart failure; E11.65 Type 2 diabetes mellitus with hyperglycemia; E86.0 Dehydration; D50.9 Iron deficiency anemia, unspecified; I11.0 Hypertensive heart disease with heart failure; E78.5 Hyperlipidemia, unspecified
CPT/HCPCS: 36415; 71045; 74178; 80048; 81001; 82948; 83605; 83735; 84100; 84145; 85025; 85027; 87040; 87077; 87088; 87186; G0378; J1650; J1815; J2185; J3475; J7120; Q9967

== ENCOUNTER 2022-10-12 09:21 | Emergency (ER) | payer OTHER ==
[~2022-10-12] VITALS: Ht 152.4 cm; Wt 77.1 kg
[~2022-10-12 09:21] MED LIST changes: +AMOX-426 PO; -DOCU100T PO; +FERS325 PO; -HYDR-4060 PO; +LINA5TAB PO; -MAGN400T51 PO; +MAGN400T53 PO; +METF-444 PO; +TRAM50TA4 PO
[2022-10-12 10:57] VITALS: BP 122/59
[2022-10-12] MEDS ORDERED: DICL20GE TP (11:02)
== END 2022-10-12 11:15 | disposition home or self-care (01) ==
LOC: EDH 09:21
DX: S46.812A Strain of other muscles, fascia and tendons at shoulder and upper arm level, left arm, initial encounter (principal); J44.9 Chronic obstructive pulmonary disease, unspecified; E11.9 Type 2 diabetes mellitus without complications; M19.90 Unspecified osteoarthritis, unspecified site; I25.10 Atherosclerotic heart disease of native coronary artery without angina pectoris; M81.0 Age-related osteoporosis without current pathological fracture; I10 Essential (primary) hypertension; Z79.82 Long term (current) use of aspirin; Z79.84 Long term (current) use of oral hypoglycemic drugs; Z90.710 Acquired absence of both cervix and uterus; Z90.49 Acquired absence of other specified parts of digestive tract; X58.XXXA Exposure to other specified factors, initial encounter; Y93.89 Activity, other specified; Y92.89 Other specified places as the place of occurrence of the external cause; Y99.8 Other external cause status
CPT/HCPCS: 29105; 71045; 73030; 73080; 93005

== ENCOUNTER → 2023-01-24 | Outpatient (CLI) | payer OTHER ==
[~2023-01-24] MED LIST changes: +DICL20GE TP; +REGADENOSON 0.4 MG/5 ML PF SYG IVP ONE
== END | disposition home or self-care (01) ==
LOC: SHCH 09:03
PROVIDERS: ATTEND Internal Medicine Cardiovascular Disease
DX: I25.10 Atherosclerotic heart disease of native coronary artery without angina pectoris (principal); Z95.5 Presence of coronary angioplasty implant and graft; I10 Essential (primary) hypertension; E78.5 Hyperlipidemia, unspecified; E11.9 Type 2 diabetes mellitus without complications; Z95.828 Presence of other vascular implants and grafts; Z79.82 Long term (current) use of aspirin; Z79.4 Long term (current) use of insulin; Z79.02 Long term (current) use of antithrombotics/antiplatelets; Z79.899 Other long term (current) drug therapy
CPT/HCPCS: 78452; 96374; 93017; J2785; A9500 ×2

== ENCOUNTER → 2023-08-02 | Outpatient (CLI) | payer OTHER ==
[~2023-08-02] MED LIST changes: -REGADENOSON 0.4 MG/5 ML PF SYG IVP ONE
== END | disposition home or self-care (01) ==
LOC: SHCH 14:25
PROVIDERS: ATTEND Internal Medicine Cardiovascular Disease
DX: I65.23 Occlusion and stenosis of bilateral carotid arteries (principal); R09.89 Other specified symptoms and signs involving the circulatory and respiratory systems
CPT/HCPCS: 93880

== ENCOUNTER 2024-01-01 12:07 | Emergency (ER) | payer OTHER ==
[~2024-01-01] VITALS: Ht 157.5 cm; Wt 81.6 kg
[2024-01-01 12:58] LABS: BASOPHILS # (AUTO) 0.01 K/uL (0.00-0.20); BASOPHILS % (AUTO) 0.2 % (0.0-5.0); EOSINOPHILS # (AUTO) 0.03 K/uL (0.00-0.70); EOSINOPHILS % (AUTO) 0.7 % (0.0-8.0); HEMATOCRIT 30.2 % (36-48); IMMATURE GRANULOCYTE ABSOLUTE 0.06 K/uL (0-1); LYMPHOCYTES # (AUTO) 1.3 K/uL (1.0-4.8); LYMPHOCYTES % (AUTO) 30.5 % (21.0-51.0); MEAN CORPUSCULAR HEMOGLOBIN 28.6 pg (27.0-33.0); MEAN CORPUSCULAR HGB CONC 32.5 g/dL (32.0-36.0); MONOCYTES # (AUTO) 0.4 K/uL (0.1-1.0); MONOCYTES % (AUTO) 9.2 % (3.0-13.0); NEUTROPHILS # (AUTO) 2.5 K/uL (1.8-7.7); PLATELET COUNT (AUTO) 174 K/uL (130-400); RED BLOOD CELL COUNT(AUTO) 3.43 MIL/uL (4.00-5.50); RED CELL DISTRIBUTION WIDTH 15.1 % (11.0-15.5); WHITE BLOOD COUNT (AUTO) 4.4 K/uL (4.8-10.8)
[2024-01-01] MEDS: 0.9%NACL 1000ML 1,000 ML IV SCH (13:03)
[2024-01-01 13:41] LABS: ALBUMIN 3.4 g/dL (3.5-5.0); BILIRUBIN,TOTAL 0.4 mg/dL (0.2-1.0); CREATININE 1.5 mg/dL (0.5-1.5); POTASSIUM 4.2 mmol/L (3.5-5.1); TOTAL PROTEIN, SERUM 7.2 g/dL (6.0-8.3)
[2024-01-01 14:04] LABS: ADD UA MICROSCOPIC YES; APPEARANCE,URINE CLOUDY (CLEAR); BILIRUBIN,URINE NEGATIVE (NEGATIVE); COLOR,URINE LIGHT-YELLOW (YELLOW); GLUCOSE, URINE (UA) 200 mg/dL (NEGATIVE); KETONES,URINE NEGATIVE (NEGATIVE); LEUKOCYTE ESTERASE ,URINE 500 Leu/uL (NEGATIVE); NITRATE,URINE NEGATIVE (NEGATIVE); OCCULT BLOOD,URINE LARGE (NEGATIVE); PROTEIN,URINE NEGATIVE (NEGATIVE); UROBILINOGEN,URINE 0.2 mg/dL (0.2-1.0)
[2024-01-01 14:34] LABS: BACTERIA,URINE RARE /HPF (None Seen); MUCUS,URINE RARE LPF (None Seen); SQUAMOUS EPITHELIAL CELL,UR FEW /HPF (0-2); UNCLASSIFIED CRYSTAL 2 /HPF (None Seen); WBC,URINE 26-50 /HPF (0-1)
[2024-01-01] MEDS: INSULIN HUMULIN R 100 UNIT/ML 3ML IV ONE (14:49)
[2024-01-01 16:09] VITALS: BP 129/85; PULSE 78; RESP 15; O2SAT 99
== END 2024-01-01 16:33 | disposition home or self-care (01) ==
LOC: EDH 12:07
DX: E11.65 Type 2 diabetes mellitus with hyperglycemia (principal); E78.00 Pure hypercholesterolemia, unspecified; I10 Essential (primary) hypertension; E11.9 Type 2 diabetes mellitus without complications; Z79.02 Long term (current) use of antithrombotics/antiplatelets; Z79.1 Long term (current) use of non-steroidal anti-inflammatories (NSAID); Z79.84 Long term (current) use of oral hypoglycemic drugs; Z79.899 Other long term (current) drug therapy; Z96.611 Presence of right artificial shoulder joint
CPT/HCPCS: 99283; 96374; 96361; 80053; 85025; 87077; 87088; 87186; 82948 ×2; 81001; 36415; J1815; J7030

== ENCOUNTER 2024-06-30 07:39 | Emergency (ER) | payer OTHER ==
[~2024-06-30] VITALS: Ht 154.9 cm; Wt 78.0 kg
[~2024-06-30 07:39] MED LIST changes: +ACET325T51 PO; +CYCL5TAB PO; -ROSU10TA28 PO; +ROSU10TA72 PO
[2024-06-30 08:10] VITALS: BP 140/70; PULSE 81; RESP 18; TEMP 98.3; O2SAT 100
[2024-06-30] MEDS: morPHINE 2 MG SYG IVP ONE (08:19)
[2024-06-30 08:24] LABS: BASOPHILS # (AUTO) 0.01 K/uL (0.00-0.20); BASOPHILS % (AUTO) 0.2 % (0.0-5.0); EOSINOPHILS # (AUTO) 0.09 K/uL (0.00-0.70); EOSINOPHILS % (AUTO) 1.5 % (0.0-8.0); HEMATOCRIT 32.5 % (36-48); IMMATURE GRANULOCYTE ABSOLUTE 0.04 K/uL (0-1); LYMPHOCYTES # (AUTO) 1.6 K/uL (1.0-4.8); MEAN CORPUSCULAR HEMOGLOBIN 27.6 pg (27.0-33.0); MEAN CORPUSCULAR HGB CONC 31.4 g/dL (32.0-36.0); MEAN CORPUSCULAR VOLUME 88.1 fL (79-99); MONOCYTES # (AUTO) 0.7 K/uL (0.1-1.0); MONOCYTES % (AUTO) 11.8 % (3.0-13.0); NEUTROPHILS # (AUTO) 3.5 K/uL (1.8-7.7); NEUTROPHILS % (AUTO) 58.8 % (40.0-77.0); PLATELET COUNT (AUTO) 177 K/uL (130-400); RED BLOOD CELL COUNT(AUTO) 3.69 MIL/uL (4.00-5.50); RED CELL DISTRIBUTION WIDTH 19.9 % (11.0-15.5)
[2024-06-30 08:34] LABS: CREATININE 1.5 mg/dL (0.5-1.0); POTASSIUM 3.5 mmol/L (3.5-5.1)
[2024-06-30 08:39] LABS: ALBUMIN 3.8 g/dL (3.5-5.0); BILIRUBIN,TOTAL 0.5 mg/dL (0.2-1.0); TOTAL PROTEIN, SERUM 7.5 g/dL (6.0-8.3)
[2024-06-30] MEDS ORDERED: LIDO1ADH71 TP (10:57)
[2024-06-30] MEDS ORDERED: IBUP-2076 PO (10:57)
[2024-06-30] MEDS ORDERED: ACET-66 PO (10:57)
[2024-06-30] MEDS: LIDOCAINE 4% ADH..PATCH TP ONE (11:16)
== END 2024-06-30 12:14 | disposition home or self-care (01) ==
LOC: EDH 07:39
DX: S29.011A Strain of muscle and tendon of front wall of thorax, initial encounter (principal); S80.02XA Contusion of left knee, initial encounter; M25.552 Pain in left hip; M25.551 Pain in right hip; M25.512 Pain in left shoulder; M79.18 Myalgia, other site; I11.0 Hypertensive heart disease with heart failure; I50.9 Heart failure, unspecified; E78.00 Pure hypercholesterolemia, unspecified; E11.9 Type 2 diabetes mellitus without complications; J44.9 Chronic obstructive pulmonary disease, unspecified; Z79.82 Long term (current) use of aspirin; Z79.4 Long term (current) use of insulin; Z79.899 Other long term (current) drug therapy; Z90.49 Acquired absence of other specified parts of digestive tract; Z90.710 Acquired absence of both cervix and uterus; Z98.890 Other specified postprocedural states; W18.39XA Other fall on same level, initial encounter; Y93.89 Activity, other specified; Y92.098 Other place in other non-institutional residence as the place of occurrence of the external cause; Y99.8 Other external cause status
CPT/HCPCS: 99285; 96374; 71045; 80053; 85025; 36415; 73521; 73070; 73560; 71100; 73030; 93005; J2270